=== PATIENT | male | born 1950 | race Caucasian/White ===

== ENCOUNTER 2016-09-30 20:59 | Observation (INO) ==
--- NOTE | 2016-09-30 21:46 | Emergency Department Note ---
Disposition Clinical Impression: COPD exacerbation Disposition: Admitted As Inpatient Condition: Good URI/Sore Throat HPI - General Chief Complaint: ED Upper Respiratory Infection Stated Complaint: cough and chest pressure Source: patient Mode of arrival: private vehicle Limitations: no limitations Nursing Notes Reviewed: Yes Vital Signs Reviewed: Yes - History of Present Illness HPI Narrative: Patient presents to the ED complaining of cough, chest tightness and shortness of breath. Symptoms including going on for 3 days. Cough has been dry. Chest tightness is worse with coughing. Denies any sore throat. No fever or chills. No nasal congestion, occasional sneezing.. No abdominal pain, nausea, vomiting or diarrhea. Denies any sick contacts or recent travel. Continues to smoke a pack per day. Has a history of both COPD and asthma. States he has been using his albuterol at home "every hour" without improvement. He also took Robitussin cough medicine without relief. - Related Data Home Medications Medication Instructions Recorded Confirmed Albuterol Sulfate [Albuterol 2 puff IH Q4HR PRN 06/28/16 10/01/16 Inhaler] Calcium Polycarbophil [Fibercon] 625 mg PO QID 06/28/16 10/01/16 Cinnamon Bark [Cinnamon] 500 mg PO DAILY 06/28/16 10/01/16 Gabapentin [Neurontin] 300 mg PO QAM 06/28/16 10/01/16 Gabapentin [Neurontin] 600 mg PO BID 06/28/16 10/01/16 Loratadine [Claritin] 10 mg PO DAILY 06/28/16 10/01/16 Meloxicam [Mobic] 15 mg PO DAILY 06/28/16 10/01/16 Mometasone Furoate [Asmanex] 220 mcg IH QPM 06/28/16 10/01/16 Montelukast [Singulair] 10 mg PO HS 06/28/16 10/01/16 Onabotulinumtoxina [Botox] 200 unit SQ Q90D 06/28/16 10/01/16 OxyCODONE/APAP 10/325 [Percocet 1 each PO Q6HR PRN 06/28/16 10/01/16 10/325 MG] Pyridoxine HCl [Vitamin B-6] 25 mg PO DAILY 06/28/16 10/01/16 Tizanidine HCl 4 mg PO TID 06/28/16 10/01/16 Allergies Allergy/AdvReac Type Severity Reaction Status Date / Time No Known Allergies Allergy Verified 06/28/16 08:14 Constitutional: Denies: fever, chills, weakness, weight change Eyes: Denies: eye pain, eye discharge, vision change ENT ED: Denies: ear pain, throat pain, dental pain, hearing loss, epistaxis, congestion, dysphagia Cardiovascular: Denies: chest pain, palpitations, dyspnea on exertion, edema, syncope Respiratory: Reports: cough, dyspnea, wheezes. Denies: sputum production Gastrointestinal: Denies: abdominal pain, nausea, vomiting, diarrhea, constipation, hematemesis, melena, hematochezia Genitourinary: Denies: urgency, dysuria, frequency, hematuria Musculoskeletal: Denies: back pain, neck pain, arthralgia, myalgia Integumentary: Denies: rash, abrasion, lesions Neurological: Denies: headache, weakness, numbness, paresthesias, confusion, abnormal gait, vertigo Psychiatric: Denies: anxiety, depression, suicidal thoughts, homicidal thoughts , auditory hallucinations, visual hallucinations Endocrine: Denies: fatigue Hematological/Lymphatic: Denies: easy bleeding, easy bruising Allergic/Immunologic: Denies: facial swelling, urticaria URI PMH - Past Medical History Medical history: Reports: asthma, cancer, COPD, hyperlipidemia, migraine, other Surgical history: Reports: cancer surgery Psychiatric history: Reports: no psych history - Social History Smoking Status: Current every day smoker Alcohol use: Reports: none Drug use: Reports: none Physical Exam - General Limitations: no limitations General appearance: alert, in no apparent distress - Head Head exam: atraumatic, normocephalic, normal inspection - Eye Eye exam: Present: normal appearance, PERRL, EOMI - ENT ENT exam: normal exam, normal oropharynx, mucous membranes moist, TM's normal bilaterally, normal external ear exam - Neck Neck exam: Present: normal inspection, full ROM, trachea midline, lymphadenopathy - Chest Chest inspection: Present: normal inspection, symmetric chest wall rise - Respiratory Respiratory exam: Present: wheezes. Absent: respiratory distress - Expanded Respiratory Exam Location: wheezes: Left, Right, Upper, Lower, decreased breath sounds: Left, Right, Upper, Lower - Cardiovascular Cardiovascular exam: Present: regular rate, normal rhythm, normal heart sounds - Abdominal Exam Abdominal exam: Present: soft, Non-Tender. Absent: tenderness, distention, guarding, rebound, rigidity - Extremities Exam Extremities exam: Present: normal inspection, full ROM. Absent: tenderness, pedal edema - Back Exam Back exam: Present: normal inspection, full ROM. Absent: tenderness - Neurological Exam Neurological exam: Present: alert, oriented X3 - Psychiatric Psychiatric exam: Present: normal affect, normal mood - Skin Skin exam: Present: warm, dry, intact, normal color Course Course Narrative: Patient presents to the ED with 3 days of worsening shortness of breath, cough and chest tightness with a history of COPD, concerning for COPD exacerbation versus possibility of pneumonia or simple URI. He was wheezing with decreased aeration on arrival. He was given Solu-Medrol and nebulizer treatments. Chest x-ray was negative for pneumonia. He had only minimal improvement while in the ED and did require oxygen for sats dropping into the upper 80s. He will require admission for his COPD exacerbation given his mild hypoxia and current oxygen requirement. Patient agreed to admission. I spoke to the hospitalist on -call, Dr. Lamb, who agreed to accept the patient. Vital Signs Temperature 98.2 F 09/30/16 21:03 Pulse Rate 81 09/30/16 21:03 Respiratory Rate 18 09/30/16 21:03 Blood Pressure 132/88 09/30/16 21:03 O2 Sat by Pulse Oximetry 94 L 09/30/16 21:03 Temperature 97.6 F 10/01/16 01:40 Pulse Rate 74 10/01/16 01:40 Respiratory Rate 18 10/01/16 01:40 Blood Pressure 164/85 10/01/16 01:40 O2 Sat by Pulse Oximetry 93 L 10/01/16 01:40 Oxygen Delivery Oxygen Delivery Room Air Upper Respiratory Infection - Differential Diagnosis Differential Diagnosis: Likely: upper respiratory infection, other viral infection, bronchitis, pneumonia - Medical Records Medical records reviewed: Yes I reviewed the patient's medical records. - Radiology Data Radiology results reviewed: Yes I reviewed the patient's radiology results. ITS Impressions Chest X-Ray 09/30/16 21:54 IMPRESSION: 1. No acute cardiopulmonary disease. 2. COPD. D/ / 09/30/2016 22:29:41 Daija Simmons MD / joseph Interpreting Provider: Daija Simmons MD
[2016-09-30] MEDS ORDERED: Ipratropium/Albuterol Neb 3 ML IH ONE (21:54)
[2016-09-30] MEDS: Ipratropium/Albuterol Neb 3 ML IH ONE ×2 (22:52)
[2016-10-01] MEDS ORDERED: Naloxone 0.4 MG/ML INJ IVP PRN ×2 (01:49→02:01)
[2016-10-01] MEDS ORDERED: Gabapentin 300 MG CAPSULE PO STA ×2 (01:54→02:01)
[2016-10-01] MEDS: *HR* OxyCODONE/APAP 10/325 TABLET PO PRN ×3 (02:10→15:42)
[2016-10-01] MEDS ORDERED: Ipratropium/Albuterol Neb 3 ML IH SCH (04:00)
[2016-10-01] MEDS: Ipratropium/Albuterol Neb 3 ML IH SCH ×3 (04:34→12:49)
[2016-10-01 06:43] LABS: Hematocrit 39.7 % (37.5-50.1); Hemoglobin 13.6 g/dL (12.9-16.9); Mean Corpuscular HGB Conc 34.3 g/dL (31.6-35.5); Mean Corpuscular Hemoglobin 31.1 pg (28.0-33.3); Mean Corpuscular Volume 90.8 fL (83.0-100.0); Mean Platelet Volume 9.4 fL (9.4-12.4); Platelet Count 239 K/mcL (140-400); Red Blood Count 4.37 M/mcL (4.19-5.50); Red Cell Distribution Width 12.2 % (11.5-14.5)
[2016-10-01 06:58] VITALS: BP 128/70
[2016-10-01 07:02] LABS: Alanine Aminotransferase 15 Units/L (0-55); Albumin 3.6 g/dL (3.5-5.0); Alkaline Phosphatase 75 Units/L (38-126); Aspartate Amino Transferase 17 Units/L (5-34); BUN/Creatinine Ratio 14 (6-26); Bilirubin,Total 0.3 mg/dL (0.2-1.2); Blood Urea Nitrogen 14 mg/dL (8-26); Calcium 9.1 mg/dL (8.6-10.8); Carbon Dioxide 24 mEq/L (19-29); Chloride 103 mEq/L (98-109); Globulin 3.5 g/dL (2.4-3.5); Glucose 165 mg/dL (70-99); Osmolality,Calculated 298 (280-300); Potassium 4.3 mEq/L (3.5-4.5); Sodium 142 mEq/L (136-145); Total Protein 7.1 g/dL (6.0-8.3); eGFR For African Americans > 60 (> 60); eGFR For Non-African Americans > 60 (> 60)
[2016-10-01 07:41] LABS: Lymphocytes # 1.5 K/mcL (0.6-4.6); Monocytes # 0.4 K/mcL (0.0-1.3); Neutrophils # 7.7 K/mcL (1.6-8.9); Toxic Granulation Present (Not Present)
[2016-10-01] MEDS ORDERED: Pyridoxine (B-6) 50 MG TABLET PO SCH (09:00)
[2016-10-01] MEDS ORDERED: Loratadine 10 MG TABLET PO SCH (09:00)
[2016-10-01] MEDS ORDERED: Gabapentin 300 MG CAPSULE PO SCH ×2 (09:00)
[2016-10-01] MEDS ORDERED: Beclomethasone 80mcg MDI IH SCH (10:00)
--- NOTE | 2016-10-01 12:58 | Internal Med History&Physical ---
Date of Encounter: 10/01/16 Time of Encounter: 12:20 Assessment and Plan (1) COPD exacerbation Current visit: Yes Status: Acute He was started on home medications by the emergency room physician. A dose of Solu-Medrol was also given. He states he feels nearly back to baseline and stable for discharge home. Room air oximetry will be checked prior to discharge on a 6 minute walk Internal Medicine - H&P: HPI Chief complaint: Cough and dyspnea Admitted From: Home Plans for Post Hospital Care: Home History of present illness: Mr. Juan is a 65 year old male who came to emergency room stating he had increased dyspnea since September 27. He had a dry cough. The dyspnea and coughing worsened the evening of September 30 so he came to emergency room. He was felt to have exacerbation of COPD and was admitted to [facility] for ongoing care needs. His respiratory history is significant for having smoked since age 18 up to one and one half packs per day. He has been diagnosed with COPD with pulmonary function test done 2014. He does not wear home oxygen. He states he does not get dyspneic on exertion with his routine activities. He reports he had a spontaneous pneumothorax approximately 1989. He states he feels significantly improved at the present time. Past Med Surg Social Fam HX - Past Medical History Medical history: asthma, cancer, COPD, hyperlipidemia, migraine, other Psychiatric history: no psych history - Past Surgical History Surgical History: cancer surgery - Social History Smoking Status: Current every day smoker Smokeless Tobacco Status: Yes Alcohol use: none Drug use: none - Family History Mother Living Status: Age at : 50 Hx Family Cardiac Disorders: Yes Father Living Status: Age at : 65 Cause of : CVA Hx Family Neurologic Disorders: Yes (CVA) Internal Medicine - H&P: Meds Albuterol Sulfate [Albuterol Inhaler] 2 puff IH Q4HR PRN 06/28/16 [History] Calcium Polycarbophil [Fibercon] 625 mg PO QID 06/28/16 [History] Cinnamon Bark [Cinnamon] 500 mg PO DAILY 06/28/16 [History] Gabapentin [Neurontin] 300 mg PO QAM 06/28/16 [History] Gabapentin [Neurontin] 600 mg PO BID 06/28/16 [History] Loratadine [Claritin] 10 mg PO DAILY 06/28/16 [History] Meloxicam [Mobic] 15 mg PO DAILY 06/28/16 [History] Mometasone Furoate [Asmanex] 220 mcg IH QPM 06/28/16 [History] Montelukast [Singulair] 10 mg PO HS 06/28/16 [History] Onabotulinumtoxina [Botox] 200 unit SQ Q90D 06/28/16 [History] OxyCODONE/APAP 10/325 [Percocet 10/325 MG] 1 each PO Q6HR PRN 06/28/16 [History] Pyridoxine HCl [Vitamin B-6] 25 mg PO DAILY 06/28/16 [History] Tizanidine HCl 4 mg PO TID 06/28/16 [History] Allergies No Known Allergies Allergy (Verified 06/28/16 08:14) All Systems PM: A 10-system review of systems was performed and is negative for pertinent findings except as documented above in the HPI. Review of systems: Gen.: He states his weight has been stable the past few months Cardiovascular: He denies hypertension PA heart failure angina DVT or pulmonary embolus Respiratory: As per history of present illness GI: Denies disorders of his liver gallbladder or exocrine pancreas : He was diagnosed with bladder cancer approximately 2011 and has had 5 surgeries of ablative therapy. He states he is cancer free at this time. He denies other kidney or bladder disorders Neurologic: Denies large distribution strokes or seizures Endocrine: Denies diabetes thyroid disease or hyperlipidemia Hematology/oncology: Denies blood disorders cancers or anemia Psychiatric: He denies anxiety depression or other mental health issues Musk skeletal: He has degenerative disc disease in his low back and has had 4 back surgeries. He has occasional pain in his neck. He has had bilateral hand surgeries with carpal tunnel syndrome and trigger finger. - Constitutional Vitals: Temp Pulse Resp BP Pulse Ox 98.3 F 71 18 128/70 94 L 10/01/16 06:57 10/01/16 06:57 10/01/16 06:57 10/01/16 06:57 10/01/16 06:57 Exam: Gen.: He is well developed well-nourished male who appears in no severe distress at present time. HEENT: Head is atraumatic and normocephalic. Eyes: EOMI. There is no scleral icterus. Mouth: Mucosa is moist. Neck: Supple and nontender. There is no thyromegaly or adenopathy noted. Heart: Regular without murmurs gallops or ectopics. Lungs: He has diminished breath sounds diffusely. No wheezes or crackles are heard. Back: Straight without flank tenderness or presacral edema Abdomen: Soft and nontender. No masses or guarding are noted. Extremities: There is no cyanosis edema or clubbing noted. Dorsalis pedis and posttibial pulses are trace to 1+ palpable bilaterally. Neurologic: Mental status: He is talkative and a good historian. Cranial nerves : Smile is symmetric. Forehead wrinkles bilaterally. Tongue protrudes midline. EOMI. Motor: There is no pronator drift. Cerebellar: Finger to nose is intact bilaterally. Skin: Warm and dry Internal Med - H&P Results - Labs CBC & Chem 7: 10/01/16 06:28 10/01/16 06:28 Labs: Short CBC 10/01/16 Range/Units 06:28 WBC 9.6 (4.3-11.1) K/mcL Hgb 13.6 (12.9-16.9) g/dL Hct 39.7 (37.5-50.1) % Plt Count 239 (140-400) K/mcL Neutrophils # 7.7 (1.6-8.9) K/mcL BMP 10/01/16 06:28 Sodium 142 Potassium 4.3 Chloride 103 Carbon Dioxide 24 BUN 14 Creatinine 0.99 Glucose 165 H Calcium 9.1 Liver Function 10/01/16 Range/Units 06:28 Total Bilirubin 0.3 (0.2-1.2) mg/dL AST 17 (5-34) Units/L ALT 15 (0-55) Units/L Alkaline Phosphatase 75 (38-126) Units/L Albumin 3.6 (3.5-5.0) g/dL - VTE Reasons for not Prescribing Prophylaxis: Treatment not Indicated - Low risk for VTE
--- NOTE | 2016-10-01 13:06 | Discharge Summary ---
Date of Encounter: 10/01/16 Time of Encounter: 12:20 - Discharge Diagnosis (1) COPD exacerbation Priority: Primary Status: Acute - Discharge Medications Home Medications: Albuterol Sulfate [Albuterol Inhaler] 2 puff IH Q4HR PRN 06/28/16 [History] Calcium Polycarbophil [Fibercon] 625 mg PO QID 06/28/16 [History] Cinnamon Bark [Cinnamon] 500 mg PO DAILY 06/28/16 [History] Gabapentin [Neurontin] 300 mg PO QAM 06/28/16 [History] Gabapentin [Neurontin] 600 mg PO BID 06/28/16 [History] Loratadine [Claritin] 10 mg PO DAILY 06/28/16 [History] Meloxicam [Mobic] 15 mg PO DAILY 06/28/16 [History] Mometasone Furoate [Asmanex] 220 mcg IH QPM 06/28/16 [History] Montelukast [Singulair] 10 mg PO HS 06/28/16 [History] Onabotulinumtoxina [Botox] 200 unit SQ Q90D 06/28/16 [History] OxyCODONE/APAP 10/325 [Percocet 10/325 MG] 1 each PO Q6HR PRN 06/28/16 [History] Pyridoxine HCl [Vitamin B-6] 25 mg PO DAILY 06/28/16 [History] Tizanidine HCl 4 mg PO TID 06/28/16 [History] Allergies/Adverse Reactions: Allergies No Known Allergies Allergy (Verified 06/28/16 08:14) Date of admission: 10/01/16 01:13 Primary care physician: Sarah Dempsey CNP - Patient Status Disposition: Home, Self-Care Condition: Good Overall status at discharge: patient is progressing back to baseline - Discharge Instructions Follow Up With: Sarah Dempsey CNP [Primary Care Provider] - 1 week Forms: ED Satisfaction Letter - Diet and Activity Activity: resume usual activities as tolerated Diet: advance to your usual diet Hospital course: Mr. Juan is a 65 year old male who came to emergency room stating he had increased dyspnea since September 27. He had a dry cough. The dyspnea and coughing worsened the evening of September 30 so he came to emergency room. He was felt to have exacerbation of COPD and was admitted to MedSurg floor for ongoing care needs. Initial orders were written by the emergency room physician. I saw him the afternoon of October 01 and performed a history physical and discharge. When I saw him he felt nearly back to his baseline and felt stable for discharge home which I felt was reasonable. His vital signs remained afebrile. He was not dyspneic at rest. Room air oximetry was checked on 6 minute walk prior to discharge. His oxygen saturation decreased to 85% after walking 10 feet. He became short of breath and required immediate reapplication of oxygen. He will need oxygen at home at 2 L/m by nasal cannula 07/03 with portable gas and concentrator. He was encouraged to discontinue smoking. I reviewed his medications with him and learned he was not using his inhaled corticosteroid on a regular basis but rather on a when necessary basis. I encouraged him to use it regularly. He will continue his home medicines otherwise as previously prescribed. He will follow with Sarah Dempsey CNP within 1 week. - Time Spent with Patient Total time spent providing and/or coordinating discharge services: - Constitutional Vitals: Temp Pulse Resp BP Pulse Ox 98.3 F 71 18 128/70 93 L 10/01/16 06:57 10/01/16 06:57 10/01/16 06:57 10/01/16 06:57 10/01/16 12:45 - VTE Reasons for not Prescribing Prophylaxis: Treatment not Indicated - Low risk for VTE
== END 2016-10-01 15:50 | disposition home or self-care (01) ==
LOC: INPPIK 20:59 → EMEROOPIK 20:59 → INPPIK 10-01 01:19
PROVIDERS: ADMIT Internal Medicine; ATTEND Internal Medicine

== ENCOUNTER 2017-12-07 08:03 | Observation (INO) ==
[2017-12-07] MEDS ORDERED: Ipratropium/Albuterol Neb 3 ML IH ONE (08:20)
--- NOTE | 2017-12-07 08:20 | Emergency Department Note ---
Disposition Clinical Impression: Community acquired pneumonia, COPD exacerbation Disposition: Admitted As Inpatient Condition: Fair Referrals: Sarah Dempsey, OLIVIER [Primary Care Provider] - Forms: ED Satisfaction Letter Time of Disposition: 09:32 (abdelrahman shultz [facility]) SOB HPI - General Chief Complaint: ED Shortness of Breath/Dyspnea Stated Complaint: SHORTNESS OF BREATH Time Seen by Provider: 12/07/17 08:05 Source: patient Mode of arrival: ambulatory Limitations: no limitations Nursing Notes Reviewed: Yes Vital Signs Reviewed: Yes - History of Present Illness Pt Subjective Complaint: shortness of breath, cough, chest pain Onset (ago): day(s) (3-4) Context: recent illness Severity: moderate, severe Consistency/Duration: gradually worsening Improves with: oxygen Worsens with: exertion, movement, coughing Known history of: COPD Associated symptoms: Reports: chest pain, cough, wheezing, sputum production. Denies: pain with inspiration, fever, orthopnea, lower extremity pain, polyuria , polydipsia, parasthesias, palpitations, hemoptysis, diaphoresis, nausea/ vomiting, syncope, abdominal pain, rash, sense of impending doom Treatment prior to arrival: oxygen, bronchodilator - Related Data Home Medications Medication Instructions Recorded Confirmed Albuterol Sulfate [Albuterol 2 puff IH Q4HR PRN 06/28/16 12/07/17 Inhaler] Calcium Polycarbophil [Fibercon] 625 mg PO QID 06/28/16 12/07/17 Cinnamon Bark [Cinnamon] 500 mg PO DAILY 06/28/16 12/07/17 Gabapentin [Neurontin] 300 mg PO QAM 06/28/16 12/07/17 Gabapentin [Neurontin] 600 mg PO BID 06/28/16 12/07/17 Loratadine [Claritin] 10 mg PO DAILY 06/28/16 12/07/17 Meloxicam [Mobic] 15 mg PO DAILY 06/28/16 12/07/17 Mometasone Furoate [Asmanex] 220 mcg IH QPM 06/28/16 12/07/17 Montelukast [Singulair] 10 mg PO HS 06/28/16 12/07/17 Onabotulinumtoxina [Botox] 200 unit SQ Q90D 06/28/16 12/07/17 OxyCODONE/APAP 10/325 [Percocet 1 each PO Q6HR PRN 06/28/16 12/07/17 10/325 MG] Pyridoxine HCl [Vitamin B-6] 25 mg PO DAILY 06/28/16 12/07/17 Baclofen 20 mg PO DAILY 12/07/17 12/07/17 Baclofen 40 mg PO BID 12/07/17 12/07/17 Allergies Allergy/AdvReac Type Severity Reaction Status Date / Time No Known Allergies Allergy Verified 06/28/16 08:14 All systems ED: reviewed and negative except as stated. Review of Systems: As Per HPI Constitutional: Reports: fever, weakness. Denies: chills Eyes: Denies: eye pain, eye discharge ENT ED: Denies: ear pain, throat pain, dental pain Cardiovascular: Reports: chest pain. Denies: palpitations, dyspnea on exertion Respiratory: Reports: cough, dyspnea, wheezes, sputum production Gastrointestinal: Denies: abdominal pain, nausea, vomiting Genitourinary: Denies: urgency, dysuria, frequency Musculoskeletal: Denies: back pain, neck pain Integumentary: Denies: rash, abrasion Neurological: Denies: headache, weakness, numbness Psychiatric: Denies: anxiety, depression Endocrine: Denies: fatigue Hematological/Lymphatic: Denies: easy bleeding Allergic/Immunologic: Denies: facial swelling Past Medical History - Past Medical History Attestation: Yes The following information was validated with the patient. Source: patient, old records reviewed, nursing notes reviewed Medical history: Reports: arthritis, asthma, cancer, COPD, fibromyalgia, hyperlipidemia, migraine, other Surgical history: Reports: cancer surgery Psychiatric history: Reports: no psych history - Social History Smoking Status: Current every day smoker Smokeless Tobacco Status: No Alcohol use: Reports: none Drug use: Reports: none Physical Exam - General Limitations: no limitations General appearance: alert, in no apparent distress, anxious - Head Head exam: atraumatic, normocephalic, normal inspection - Eye Eye exam: Present: normal appearance, PERRL, EOMI - ENT ENT exam: normal exam, normal oropharynx, mucous membranes moist, TM's normal bilaterally, normal external ear exam, other (pnd) - Neck Neck exam: Present: normal inspection, full ROM, trachea midline - Chest Chest inspection: Present: normal inspection, symmetric chest wall rise. Absent : tenderness - Respiratory Respiratory exam: Present: wheezes, prolonged expiratory phase, other (Wet moist cough). Absent: respiratory distress, accessory muscle use - Cardiovascular Cardiovascular exam: Present: regular rate, normal rhythm, normal heart sounds - Abdominal Exam Abdominal exam: Present: soft, Non-Tender, normal bowel sounds. Absent: mass, pulsatile mass - Extremities Exam Extremities exam: Present: normal inspection, full ROM, normal capillary refill. Absent: tenderness, pedal edema, joint swelling, calf tenderness - Expanded Lower Extremity Exam Neurovascular/Tendon exam: Present: normal capillary refill, normal fine/light touch Gait: observed and normal - Back Exam Back exam: Present: normal inspection, full ROM. Absent: muscle spasm - Neurological Exam Neurological exam: Present: alert, oriented X3, CN II-XII intact, normal gait - Psychiatric Psychiatric exam: Present: normal affect, normal mood - Skin Skin exam: Present: warm, dry, intact, normal color Course Course Narrative: Patient was seen and examined patient was given aerosol treatment 2 patient still has wet moist cough but is not as deep as the patient though is resting a little bit easier able sit back hip this time and respiratory rate appears to have slowed a slightly down to 24 patient does meet criteria for sepsis but not septic shock as read admitted services of Dr. Lamb he'll be given fluids antibiotics he started on Levaquin here in the ER. Pancultured Vital Signs Temperature 99.0 F 12/07/17 08:05 Pulse Rate 94 12/07/17 08:05 Respiratory Rate 24 12/07/17 08:05 Blood Pressure 151/91 12/07/17 08:05 O2 Sat by Pulse Oximetry 94 12/07/17 08:05 Temperature 99.0 F 12/07/17 08:05 Pulse Rate 85 12/07/17 09:00 Respiratory Rate 20 12/07/17 09:00 Blood Pressure 119/74 12/07/17 09:00 O2 Sat by Pulse Oximetry 94 12/07/17 09:00 Oxygen Delivery Oxygen Delivery Nasal Cannula Shortness of Breath/Dyspnea - Differential Diagnosis Likely: acute exacerbation of chronic obstructive airways disease, pneumonia - Medical Records Medical records reviewed: Yes I reviewed the patient's medical records. - Lab Data Lab results reviewed: Yes I reviewed the patient's lab results. Result diagrams: 12/07/17 08:20 12/07/17 08:20 Lab Results 12/07/17 12/07/1712/07/18 Range/Units 08:20 08:20 08:20 WBC 17.4 H (4.3-11.1) K/mcL RBC 4.18 L (4.19-5.50) M/mcL Hgb 13.2 (12.9-16.9) g/dL Hct 39.8 (37.5-50.1) % MCV 95.2 (83.0-100.0) fL MCH 31.6 (28.0-33.3) pg MCHC 33.2 (31.6-35.5) g/dL RDW 13.0 (11.5-14.5) % Plt Count 198 (140-400) K/mcL MPV 9.9 (9.4-12.4) fL Immature Gran % 0.3 (0-4) % Seg Neutrophils % 77.8 % Lymphocytes % 14.3 % Monocytes % 6.7 % Eosinophils % 0.7 % Basophils % 0.2 % Neutrophils # 13.5 H (1.6-8.9) K/mcL Lymphocytes # 2.5 (0.6-4.6) K/mcL Monocytes # 1.2 (0.0-1.3) K/mcL Eosinophils # 0.1 (0.0-0.6) K/mcL Basophils # 0.0 (0.0-0.2) K/mcL PT 11.1 (9.4-12.1) Seconds INR 1.0 APTT 30.3 (26.0-36.0) Seconds Sodium 138 (136-145) mEq/L Potassium 3.9 (3.5-5.1) mEq/L Chloride 101 (98-107) mEq/L Carbon Dioxide 32 H (23-29) mEq/L BUN 14 (8-23) mg/dL Creatinine 0.78 (0.70-1.30) mg/dL Est GFR ( Amer) > 60 (> 60) Est GFR (Non-Af Amer) > 60 (> 60) BUN/Creatinine Ratio 18 (6-26) Glucose 117 H (70-105) mg/dL Calculated Osmolality 288 (280-300) Calcium 9.3 (8.6-10.3) mg/dL Total Bilirubin 0.5 (0.3-1.0) mg/dL AST 13 (13-39) Units/L ALT 13 (7-52) Units/L Alkaline Phosphatase 67 (34-104) Units/L Troponin I < 0.03 (< 0.04) ng/mL Serum Total Protein 7.2 (6.4-8.9) g/dL Albumin 4.1 (3.5-5.7) g/dL Globulin 3.1 (2.4-3.5) g/dL Albumin/Globulin Ratio 1.3 (1.1-2.2) - Radiology Data Radiology results reviewed: Yes I reviewed the patient's radiology results. ITS Impressions Chest X-Ray 12/07/17 08:22 IMPRESSION: New mild multifocal airspace opacity within the right upper lobe and right lung base, representing either atelectasis or multifocal pneumonia. D/ / 12/07/2017 09:17:31 Mohsen Carrillo MD / [facility] Interpreting Provider: Mohsen Carrillo MD - EKG Data EKG attestation: Yes I reviewed and interpreted this EKG. EKG results narrative: Sinus rhythm with an arrhythmia rate of 85 OK 170 QRS 100 QT 352 axis LXIII Critical Care Time Critical Care Time: No Sepsis Reassessment Note - Evaluation Sepsis Screen: Sepsis Risk Current Stage of Sepsis: sepsis Possible Source of Sepsis: pulmonary - Focused Exam Date of Encounter: 12/07/17 Time of Encounter: 09:28 Vital Signs: Vital Signs Temp Pulse Resp BP Pulse Ox 12/07/17 09:00 85 20 119/74 94 12/07/17 08:32 18 90 12/07/17 08:05 99.0 F 94 24 151/91 94 Respiratory Exam: Present: wheezes, rhonchi, decreased breath sounds, prolonged expiratory phas Cardiovascular Exam: Present: RRR Capillary Refill: < 2 seconds Peripheral Pulse Strength: 4+ bounding Peripheral Pulse Location: Radial Skin Exam: normal turgor
[2017-12-07] MEDS ORDERED: methylPREDNISolone 125 MG/2 ML VIAL IVP ONE (08:22)
[2017-12-07] MEDS ORDERED: Ipratropium/Albuterol Neb 3 ML ONE (08:24)
[2017-12-07 08:29] LABS: Basophils % 0.2 %; Eosinophils # 0.1 K/mcL (0.0-0.6); Eosinophils % 0.7 %; Hematocrit 39.8 % (37.5-50.1); Hemoglobin 13.2 g/dL (12.9-16.9); Immature Granulocytes % 0.3 % (0-4); Lymphocytes # 2.5 K/mcL (0.6-4.6); Lymphocytes % 14.3 %; Mean Corpuscular HGB Conc 33.2 g/dL (31.6-35.5); Mean Corpuscular Hemoglobin 31.6 pg (28.0-33.3); Mean Corpuscular Volume 95.2 fL (83.0-100.0); Mean Platelet Volume 9.9 fL (9.4-12.4); Monocytes # 1.2 K/mcL (0.0-1.3); Monocytes % 6.7 %; Neutrophils # 13.5 K/mcL (1.6-8.9); Platelet Count 198 K/mcL (140-400); Red Blood Count 4.18 M/mcL (4.19-5.50); Segmented Neutrophils % 77.8 %
[2017-12-07 08:37] LABS: Prothrombin Time 11.1 Seconds (9.4-12.1)
[2017-12-07 08:40] LABS: Activated Partial Thrombo Time 30.3 Seconds (26.0-36.0)
[2017-12-07 08:48] LABS: Troponin I < 0.03 ng/mL (< 0.04)
[2017-12-07 08:55] LABS: Alanine Aminotransferase 13 Units/L (7-52); Albumin 4.1 g/dL (3.5-5.7); Albumin/Globulin Ratio 1.3 (1.1-2.2); Alkaline Phosphatase 67 Units/L (34-104); Aspartate Amino Transferase 13 Units/L (13-39); BUN/Creatinine Ratio 18 (6-26); Bilirubin,Total 0.5 mg/dL (0.3-1.0); Blood Urea Nitrogen 14 mg/dL (8-23); Calcium 9.3 mg/dL (8.6-10.3); Carbon Dioxide 32 mEq/L (23-29); Chloride 101 mEq/L (98-107); Globulin 3.1 g/dL (2.4-3.5); Glucose 117 mg/dL (70-105); Osmolality,Calculated 288 (280-300); Potassium 3.9 mEq/L (3.5-5.1); Sodium 138 mEq/L (136-145); Total Protein 7.2 g/dL (6.4-8.9); eGFR For African Americans > 60 (> 60); eGFR For Non-African Americans > 60 (> 60)
[2017-12-07] MEDS ORDERED: Levofloxacin 750 MG/150 ML 750 MG/150 ML BAG IVPB ONE (09:11)
[2017-12-07] MEDS ORDERED: Naloxone 0.4 MG/ML INJ IVP PRN (10:06)
[2017-12-07] MEDS: *HR* OxyCODONE/APAP 10/325 TABLET PO PRN ×3 (11:22→23:34)
[2017-12-07] MEDS: 0.9 % Sodium Chloride 1,000 ML IVC SCH ×2 (11:22→18:31)
--- NOTE | 2017-12-07 18:06 | Internal Med History&Physical ---
Date of Encounter: 12/07/17 Time of Encounter: 17:35 Assessment and Plan (1) Community acquired pneumonia Current visit: Yes Status: Acute He was started on Levaquin through emergency room. Will continue this and add lactobacillus. Will order chest CT to further evaluate. Qualifiers: Laterality: right Lung location: unspecified part of lung Qualified Code( s): J18.9 - Pneumonia, unspecified organism (2) COPD exacerbation Current visit: Yes Status: Acute Will treat pneumonia as per above. Continue Singulair and prn albuterol nebs Internal Medicine - H&P: HPI Chief complaint: Dyspnea Admitted From: Emergency Dept Plans for Post Hospital Care: Home History of present illness: Mr. Juan is a 67 year old male who came to emergency room complaining of increased dyspnea over the past 3 days. He reports cough occasionally productive of greenish sputum. He denies hemoptysis, fevers, or chills. He was evaluated in emergency room and found to have multifocal right lung pneumonia on chest x-ray. He was admitted to [facility] floor for ongoing care needs. Respiratory history is significant for having smoked since age 18 up to one half packs per day. He reports PFTs done 2015 showed COPD. He qualified for home oxygen at time of discharge September 2016 [facility] hospitalization and states he wears it 07/03 except taking it off to smoke. He reports spontaneous pneumothorax requiring surgical intervention approximately 1989. Past Med Surg Social Fam HX - Past Medical History Medical history: arthritis, asthma, cancer, COPD, fibromyalgia, hyperlipidemia, migraine, other Psychiatric history: no psych history - Past Surgical History Surgical History: cancer surgery - Social History Smoking Status: Current every day smoker Smokeless Tobacco Status: No Alcohol use: none Drug use: none - Family History Mother Living Status: Hx Family Cardiac Disorders: Yes Father Living Status: Hx Family Neurologic Disorders: Yes (CVA) Internal Medicine - H&P: Meds Albuterol Sulfate [Albuterol Inhaler] 2 puff IH Q4HR PRN 06/28/16 [History] Calcium Polycarbophil [Fibercon] 625 mg PO QID 06/28/16 [History] Cinnamon Bark [Cinnamon] 500 mg PO DAILY 06/28/16 [History] Gabapentin [Neurontin] 300 mg PO QAM 06/28/16 [History] Gabapentin [Neurontin] 600 mg PO BID 06/28/16 [History] Loratadine [Claritin] 10 mg PO DAILY 06/28/16 [History] Meloxicam [Mobic] 15 mg PO DAILY 06/28/16 [History] Mometasone Furoate [Asmanex] 220 mcg IH QPM 06/28/16 [History] Montelukast [Singulair] 10 mg PO HS 06/28/16 [History] Onabotulinumtoxina [Botox] 200 unit SQ Q90D 06/28/16 [History] OxyCODONE/APAP 10/325 [Percocet 10/325 MG] 1 each PO Q6HR PRN 06/28/16 [History] Pyridoxine HCl [Vitamin B-6] 25 mg PO DAILY 06/28/16 [History] Baclofen 20 mg PO DAILY 12/07/17 [History] Baclofen 40 mg PO BID 12/07/17 [History] 3 Allergy/AdvReac Type Severity Reaction Status Date / Time No Known Allergies Allergy Verified 06/28/16 08:14 All Systems PM: A 10-system review of systems was performed and is negative for pertinent findings except as documented above in the HPI. Review of systems: Review of systems from his September 2016 [facility] hospitalization were reviewed and revised as below. Gen.: His weight has increased from 85.729 kg on 09/30/2016 to present weight of 88.451 kg. Cardiovascular: He denies hypertension [place] heart failure angina DVT or pulmonary embolus Respiratory: As per history of present illness GI: Denies disorders of his liver gallbladder or exocrine pancreas : He was diagnosed with bladder cancer approximately 2011 and has had 5 surgeries of ablative therapy. He states he is cancer free at this time. He denies other kidney or bladder disorders Neurologic: Denies large distribution strokes or seizures. He has history of migraine headaches and takes Botox injections Endocrine: Denies diabetes thyroid disease or hyperlipidemia Hematology/oncology: Denies blood disorders cancers or anemia Psychiatric: He denies anxiety depression or other mental health issues Musk skeletal: He has degenerative disc disease in his low back and has had 4 back surgeries. He has occasional pain in his neck. He has had bilateral hand surgeries with carpal tunnel syndrome and trigger finger. - Constitutional Vitals: Temp Pulse Resp BP Pulse Ox 98.2 F 74 18 134/70 90 12/07/17 14:06 12/07/17 14:06 12/07/17 14:06 12/07/17 14:06 12/07/17 14:06 Exam: Gen.: He is a well-developed well-nourished male resting quietly in bed who appears in no significant distress at present time HEENT: Head is atraumatic and normocephalic. Eyes: EOMI. There is no scleral icterus. Mouth: Mucosa is moist. Neck: Supple and nontender. There is no thyromegaly or adenopathy noted. Heart: Regular without murmurs gallops or ectopics Lungs: No wheezes or egophony or crackles are heard. He has diminished breath sounds diffusely. Abdomen: Soft and nontender. No masses or guarding are noted. Extremities: There is no cyanosis edema or clubbing noted. Dorsalis pedis and posttibial pulses 1-2 over 2 bilaterally. Neurologic: Mental status: He is talkative and a good historian. Cranial nerves : Smile is symmetric. Forehead wrinkles bilaterally. Tongue protrudes midline. EOMI. Motor: There is no pronator drift. Cerebellar: Finger to nose is intact bilaterally. Skin: Warm and dry. He has multiple subcutaneous lipomas Internal Med - H&P Results - Labs CBC & Chem 7: 12/07/17 08:20 12/07/17 08:20
[2017-12-07] MEDS: Gabapentin 300 MG CAPSULE PO SCH (20:16)
[2017-12-07] MEDS: Baclofen 10 MG TABLET PO SCH (20:16)
[2017-12-08 06:27] VITALS: BP 142/65
[2017-12-08 06:52] LABS: Basophils % 0.1 %; Eosinophils % 0.1 %; Hematocrit 37.5 % (37.5-50.1); Hemoglobin 12.2 g/dL (12.9-16.9); Immature Granulocytes % 0.5 % (0-4); Lymphocytes % 13.6 %; Mean Corpuscular HGB Conc 32.5 g/dL (31.6-35.5); Mean Corpuscular Hemoglobin 30.9 pg (28.0-33.3); Mean Corpuscular Volume 94.9 fL (83.0-100.0); Mean Platelet Volume 9.8 fL (9.4-12.4); Monocytes # 0.9 K/mcL (0.0-1.3); Monocytes % 5.9 %; Platelet Count 212 K/mcL (140-400); Red Blood Count 3.95 M/mcL (4.19-5.50); Red Cell Distribution Width 12.8 % (11.5-14.5); Segmented Neutrophils % 79.8 %
[2017-12-08 07:10] LABS: BUN/Creatinine Ratio 19 (6-26); Blood Urea Nitrogen 13 mg/dL (8-23); Calcium 9.2 mg/dL (8.6-10.3); Carbon Dioxide 30 mEq/L (23-29); Chloride 106 mEq/L (98-107); Glucose 106 mg/dL (70-105); Osmolality,Calculated 293 (280-300); Potassium 4.2 mEq/L (3.5-5.1); Sodium 141 mEq/L (136-145); eGFR For African Americans > 60 (> 60); eGFR For Non-African Americans > 60 (> 60)
[2017-12-08] MEDS: Gabapentin 300 MG CAPSULE PO SCH (08:13)
[2017-12-08] MEDS: Baclofen 10 MG TABLET PO SCH (08:18)
[2017-12-08] MEDS: *HR* OxyCODONE/APAP 10/325 TABLET PO PRN (08:19)
[2017-12-08] MEDS ORDERED: Baclofen 10 MG TABLET PO SCH ×2 (09:00→15:00)
[2017-12-08] MEDS ORDERED: Pyridoxine (B-6) 50 MG TABLET PO SCH (09:00)
[2017-12-08] MEDS ORDERED: Gabapentin 300 MG CAPSULE PO SCH ×2 (09:00→15:00)
[2017-12-08] MEDS ORDERED: Loratadine 10 MG TABLET PO SCH (09:00)
[2017-12-08] MEDS ORDERED: Levofloxacin 750 MG/150 ML 750 MG/150 ML BAG IVPB SCH (09:00)
[2017-12-08] MEDS ORDERED: (Cinnamon Bark [Cinnamon] 500 MG) PO SCH (09:00)
--- NOTE | 2017-12-08 09:44 | Discharge Summary ---
Date of Encounter: 12/08/17 Time of Encounter: 09:35 - Discharge Diagnosis (1) Community acquired pneumonia Priority: Primary Status: Acute Qualifiers: Laterality: right Lung location: unspecified part of lung Qualified Code( s): J18.9 - Pneumonia, unspecified organism (2) COPD exacerbation Priority: Secondary Status: Acute Hospital course: Mr. Juan is a 67 year old male who came to emergency room complaining of increased dyspnea over the past 3 days. He reports cough occasionally productive of greenish sputum. He denies hemoptysis, fevers, or chills. He was evaluated in emergency room and found to have multifocal right lung pneumonia on chest x-ray. He was admitted to [facility] for ongoing care needs. Initial orders written by the emergency room physician. I saw him on December 07 and performed a history and physical. He was started on Levaquin in emergency room. I added lactobacillus. Chest CT was done to further evaluate. The CT showed nonspecific multifocal bilateral pulmonary nodules. There were extensive emphysema changes. No dense consolidation was noted. Recommendation for repeat noncontrast chest CT in 3-4 months was made. Follow-up labs on December 08 showed WBC improved to 15.0. He remained afebrile during his hospital stay. On December 08 he wished to be discharged home which I felt was reasonable. He will continue oxygen use at home 07/03. He will continue with antibiotic and probiotic for 5 additional days at discharge. I encouraged him to become a nonsmoker. He will follow with his PCP within 1 week. - Time Spent with Patient Total time spent providing and/or coordinating discharge services: - Discharge Medications Prescriptions: Lactobacillus [Culturelle] 1 each PO BID #10 cap.sprink levoFLOXacin [Levaquin] 500 mg PO DAILY #5 tablet Home Medications: Albuterol Sulfate [Albuterol Inhaler] 2 puff IH Q4HR PRN 06/28/16 [History] Calcium Polycarbophil [Fibercon] 625 mg PO QID 06/28/16 [History] Cinnamon Bark [Cinnamon] 500 mg PO DAILY 06/28/16 [History] Gabapentin [Neurontin] 300 mg PO QAM 06/28/16 [History] Gabapentin [Neurontin] 600 mg PO BID 06/28/16 [History] Loratadine [Claritin] 10 mg PO DAILY 11/14/16 [History] Meloxicam [Mobic] 15 mg PO DAILY 06/28/16 [History] Mometasone Furoate [Asmanex] 220 mcg IH QPM 06/28/16 [History] Montelukast [Singulair] 10 mg PO HS 06/28/16 [History] Onabotulinumtoxina [Botox] 200 unit SQ Q90D 06/28/16 [History] OxyCODONE/APAP 10/325 [Percocet 10/325 MG] 1 each PO Q6HR PRN 06/28/16 [History] Pyridoxine HCl [Vitamin B-6] 25 mg PO DAILY 06/28/16 [History] Baclofen 20 mg PO DAILY 12/07/17 [History] Baclofen 40 mg PO BID 12/07/17 [History] Lactobacillus [Culturelle] 1 each PO BID #10 cap.sprink 12/08/17 [Rx] levoFLOXacin [Levaquin] 500 mg PO DAILY #5 tablet 12/08/17 [Rx] Allergies/Adverse Reactions: 3 Allergy/AdvReac Type Severity Reaction Status Date / Time No Known Allergies Allergy Verified 06/28/16 08:14 Date of admission: 12/07/17 09:55 Primary care physician: Sarah Dempsey CNP - Constitutional Vitals: Temp Pulse Resp BP Pulse Ox 98.2 F 60 16 142/65 94 12/08/17 06:23 12/08/17 06:23 12/08/17 06:23 12/08/17 06:23 12/08/17 06:23 - Patient Status Disposition: Home, Self-Care Condition: Fair Overall status at discharge: patient is progressing back to baseline - Discharge Instructions Follow Up With: Sarah Dempsey CNP [Primary Care Provider] - 1 week - Diet and Activity Activity: resume usual activities as tolerated, wear oxygen at all times Diet: advance to your usual diet
--- NOTE | 2017-12-09 19:18 | Electrocardiograph Report ---
[address] [address] Test Date: 2017-12-07 Pat Name: Ravinder Juan Department: [id number] Room: [facility] Gender: M Email Deployment Specialist: [id number] : 1950 Requested By: Phyllis Mckeon Order Number: [id number] Reading MD: Fernanda Brock Measurements Intervals [place] Rate: 85 P: 78 MT: 170 QRS: 63 QRSD: 100 T: 73 QT: 352 QTc: 394 Interpretive Statements SINUS RHYTHM WITH SINUS ARRHYTHMIA Electronically Signed On 12-09-2017 19:16:35 EDT by Fernanda Brock
== END 2017-12-08 10:03 | disposition home or self-care (01) ==
LOC: INPPIK 08:03 → EMEROOPIK 08:03 → INPPIK 10:37
PROVIDERS: ADMIT Internal Medicine; ATTEND Internal Medicine

== ENCOUNTER 2019-06-16 09:43 | Observation (INO) ==
[2019-06-16] MEDS ORDERED: Azithromycin 500 MG in 0.9 % Sodium Chloride 250 ML IVPB ONE (09:48)
[2019-06-16] MEDS ORDERED: cefTRIAXone 2,000 MG in Water for inj. (sterile) 10 ML IVP ONE (09:48)
[2019-06-16] MEDS ORDERED: Ipratropium/Albuterol Neb 3 ML IH ONE (09:48)
[2019-06-16] MEDS ORDERED: methylPREDNISolone 125 MG/2 ML VIAL IVP ONE (09:48)
[2019-06-16] MEDS ORDERED: 0.9 % Sodium Chloride 1,000 ML IVC SCH ×3 (10:00→17:23)
[2019-06-16 10:16] LABS: Basophils % 0.5 %; Eosinophils # 0.1 K/mcL (0.0-0.6); Eosinophils % 0.7 %; Hematocrit 36.3 % (37.5-50.1); Hemoglobin 11.7 g/dL (12.9-16.9); Immature Granulocytes % 0.3 % (0-4); Lymphocytes # 1.8 K/mcL (0.6-4.6); Lymphocytes % 23.6 %; Mean Corpuscular HGB Conc 32.2 g/dL (31.6-35.5); Mean Corpuscular Hemoglobin 30.5 pg (28.0-33.3); Mean Corpuscular Volume 94.8 fL (83.0-100.0); Mean Platelet Volume 9.5 fL (9.4-12.4); Monocytes # 1.3 K/mcL (0.0-1.3); Monocytes % 16.5 %; Neutrophils # 4.5 K/mcL (1.6-8.9); Platelet Count 245 K/mcL (140-400); Red Blood Count 3.83 M/mcL (4.19-5.50); Red Cell Distribution Width 13.4 % (11.5-14.5); Segmented Neutrophils % 58.4 %; White Blood Count 7.7 K/mcL (4.3-11.1)
[2019-06-16 10:24] LABS: INR 1.2; Prothrombin Time 13.6 Seconds (9.4-12.1)
[2019-06-16 10:32] LABS: Alanine Aminotransferase 18 Units/L (7-52); Albumin 3.7 g/dL (3.5-5.7); Albumin/Globulin Ratio 1.1 (1.1-2.2); Alkaline Phosphatase 59 Units/L (34-104); Aspartate Amino Transferase 26 Units/L (13-39); BUN/Creatinine Ratio 24 (6-26); Bilirubin,Direct 0.1 mg/dL (0.0-0.2); Bilirubin,Indirect 0.2 mg/dL (0.0-1.0); Bilirubin,Total 0.3 mg/dL (0.3-1.0); Blood Urea Nitrogen 21 mg/dL (8-23); Calcium 9.6 mg/dL (8.6-10.3); Carbon Dioxide 33 mEq/L (23-29); Chloride 98 mEq/L (98-107); Globulin 3.5 g/dL (2.4-3.5); Glucose 115 mg/dL (70-105); Osmolality,Calculated 286 (280-300); Potassium 4.5 mEq/L (3.5-5.1); Sodium 136 mEq/L (136-145); Total Protein 7.2 g/dL (6.4-8.9); eGFR For African Americans > 60 (> 60); eGFR For Non-African Americans > 60 (> 60)
[2019-06-16 10:37] LABS: Troponin I < 0.03 ng/mL (< 0.04)
[2019-06-16] MEDS ORDERED: Ondansetron ODT 4 MG TAB.RAPDIS SL PRN (12:13)
[2019-06-16] MEDS ORDERED: Naloxone 0.4 MG/ML INJ IVP PRN (12:13)
[2019-06-16] MEDS ORDERED: Mag Hydrox/Al Hydrox/Simeth 30 ML UDC PO PRN (12:13)
[2019-06-16] MEDS ORDERED: MOM Conc 10 ML UD.LIQ PO PRN (12:13)
[2019-06-16] MEDS ORDERED: Albuterol 2.5 MG/3 ML NEBULIZER IH ONE (12:20)
[2019-06-16] MEDS ORDERED: Albuterol 2.5 MG/3 ML NEBULIZER ONE (12:28)
[2019-06-16] MEDS ORDERED: *HR* OxyCODONE/APAP 10/325 TABLET PO ONE (12:31)
[2019-06-16] MEDS ORDERED: Ipratropium/Albuterol Neb 3 ML IH SCH (16:00)
[2019-06-16] MEDS ORDERED: Albuterol 2.5 MG/3 ML NEBULIZER IH PRN (17:21)
[2019-06-16] MEDS ORDERED: SUMAtriptan succinate 25 MG TABLET PO PRN (18:34)
[2019-06-16] MEDS ORDERED: *HR* OxyCODONE/APAP 10/325 TABLET PO PRN (18:34)
[2019-06-16] MEDS ORDERED: Gabapentin 400 MG CAPSULE PO SCH (18:35)
[2019-06-16 18:54] VITALS: BP 120/64
[2019-06-16] MEDS ORDERED: Baclofen 10 MG TABLET PO SCH (19:00)
[2019-06-16] MEDS ORDERED: Lactobacillus 1 EACH CAP.SPRINK PO SCH (21:00)
[2019-06-17] MEDS ORDERED: predniSONE 20 MG TABLET PO SCH (08:00)
[2019-06-17] MEDS ORDERED: cefTRIAXone 2,000 MG in 0.9 % Sodium Chloride Mini Bag 100 ML IVPB SCH (09:00)
[2019-06-17] MEDS ORDERED: Azithromycin 500 MG in 0.9 % Sodium Chloride 250 ML IVPB SCH (11:00)
[2019-06-17] MEDS ORDERED: tiZANidine 4 MG TABLET PO SCH (18:36)
== END 2019-06-16 18:58 | disposition other institution (70) ==
LOC: INPPIK 09:43 → EMEROOPIK 09:43 → INPPIK 13:13
PROVIDERS: ADMIT Internal Medicine; ATTEND Internal Medicine

== ENCOUNTER 2020-01-08 17:12 | Inpatient (IN) ==
[2020-01-08] MEDS ORDERED: methylPREDNISolone 125 MG/2 ML VIAL IVP ONE (17:21)
[2020-01-08] MEDS ORDERED: Ipratropium/Albuterol Neb 3 ML IH ONE (17:21)
[2020-01-08 17:39] LABS: Basophils % 0.1 %; Eosinophils # 0.3 K/mcL (0.0-0.6); Eosinophils % 3.5 %; Hematocrit 34.8 % (37.5-50.1); Hemoglobin 10.9 g/dL (12.9-16.9); Immature Granulocytes % 0.5 % (0-4); Lymphocytes # 2.1 K/mcL (0.6-4.6); Lymphocytes % 21.4 %; Mean Corpuscular HGB Conc 31.3 g/dL (31.6-35.5); Mean Corpuscular Hemoglobin 30.6 pg (28.0-33.3); Mean Corpuscular Volume 97.8 fL (83.0-100.0); Mean Platelet Volume 9.9 fL (9.4-12.4); Monocytes # 0.9 K/mcL (0.0-1.3); Monocytes % 9.2 %; Neutrophils # 6.3 K/mcL (1.6-8.9); Platelet Count 155 K/mcL (140-400); Red Blood Count 3.56 M/mcL (4.19-5.50); Red Cell Distribution Width 16.3 % (11.5-14.5); Segmented Neutrophils % 65.3 %; White Blood Count 9.6 K/mcL (4.3-11.1)
[2020-01-08] MEDS ORDERED: tiZANidine 4 MG TABLET PO ONE (17:57)
[2020-01-08] MEDS ORDERED: Gabapentin 400 MG CAPSULE PO ONE (17:57)
[2020-01-08] MEDS ORDERED: *HR* OxyCODONE/APAP 10/325 TABLET PO ONE (17:57)
[2020-01-08 18:00] LABS: BUN/Creatinine Ratio 22 (6-26); Blood Urea Nitrogen 17 mg/dL (8-23); Calcium 9.4 mg/dL (8.6-10.3); Carbon Dioxide 41 mEq/L (23-29); Chloride 101 mEq/L (98-107); Glucose 90 mg/dL (70-105); Osmolality,Calculated 295 (280-300); Potassium 4.2 mEq/L (3.5-5.1); Sodium 142 mEq/L (136-145); Troponin I < 0.03 ng/mL (< 0.04); eGFR For African Americans > 60 (> 60); eGFR For Non-African Americans > 60 (> 60)
[2020-01-08] MEDS ORDERED: Naloxone 0.4 MG/ML INJ IVP PRN (18:52)
[2020-01-08] MEDS ORDERED: Ondansetron ODT 4 MG TAB.RAPDIS SL PRN (18:52)
[2020-01-08] MEDS ORDERED: Mag Hydrox/Al Hydrox/Simeth 30 ML UDC PO PRN (18:52)
[2020-01-08] MEDS: calcium polycarbophiL 625 MG TABLET PO SCH (21:24)
[2020-01-08] MEDS: Azithromycin 500 MG in 0.9 % Sodium Chloride 250 ML IVPB SCH (21:25)
[2020-01-08] MEDS: Gabapentin 400 MG CAPSULE PO SCH (21:25)
[2020-01-08] MEDS: (Diclofenac Sodium [Voltaren] 100 GM) TP SCH (21:34)
[2020-01-08 22:46] LABS: Bilirubin,Urine Negative (Negative); Blood,Urine Negative (Negative); Clarity,Urine Cloudy (Clear); Color,Urine Yellow (Yellow); Glucose,Urine (UA) Normal (Normal); Ketones,Urine Negative (Negative); Leukocyte Esterase,Urine Negative (Negative); Nitrite,Urine Negative (Negative); PH,Urine 7.5 pH Units (5.0-8.0); Protein,Urine Negative (Neg-Trace); Specific Gravity,Urine 1.015 (1.010-1.025); Urobilinogen,Urine Normal (Normal)
[2020-01-08 22:52] LABS: WBC,Urine 0-3 per hpf (0-3)
[2020-01-08 22:53] LABS: Amorphous Sediment,Urine Moderate per hpf (Few)
[2020-01-08] MEDS: Ipratropium/Albuterol Neb 3 ML IH SCH (23:48)
[2020-01-09] MEDS: *HR* OxyCODONE/APAP 10/325 TABLET PO PRN ×4 (00:09→20:55)
[2020-01-09] MEDS: MethylPREDNISolone 40 MG/ML VIAL IVP SCH ×5 (00:10→23:40)
[2020-01-09] MEDS: Ipratropium/Albuterol Neb 3 ML IH SCH ×5 (04:52→21:34)
[2020-01-09 06:19] LABS: Basophils % 0.1 %; Hematocrit 33.2 % (37.5-50.1); Hemoglobin 10.6 g/dL (12.9-16.9); Immature Granulocytes % 0.3 % (0-4); Lymphocytes # 0.8 K/mcL (0.6-4.6); Lymphocytes % 11.8 %; Mean Corpuscular HGB Conc 31.9 g/dL (31.6-35.5); Mean Corpuscular Hemoglobin 31.1 pg (28.0-33.3); Mean Corpuscular Volume 97.4 fL (83.0-100.0); Mean Platelet Volume 10.3 fL (9.4-12.4); Monocytes # 0.1 K/mcL (0.0-1.3); Neutrophils # 5.9 K/mcL (1.6-8.9); Platelet Count 168 K/mcL (140-400); Red Blood Count 3.41 M/mcL (4.19-5.50); Segmented Neutrophils % 86.8 %; White Blood Count 6.8 K/mcL (4.3-11.1)
[2020-01-09 06:44] LABS: BUN/Creatinine Ratio 25 (6-26); Blood Urea Nitrogen 17 mg/dL (8-23); Calcium 8.8 mg/dL (8.6-10.3); Carbon Dioxide 37 mEq/L (23-29); Chloride 102 mEq/L (98-107); Glucose 167 mg/dL (70-105); Osmolality,Calculated 301 (280-300); Potassium 4.7 mEq/L (3.5-5.1); Sodium 143 mEq/L (136-145); eGFR For African Americans > 60 (> 60); eGFR For Non-African Americans > 60 (> 60)
[2020-01-09] MEDS ORDERED: *HR* Dextrose 50 % in Water (Syg) 50 ML SYRINGE IVP PRN (07:21)
[2020-01-09] MEDS ORDERED: D5% in Water 1,000 ML IVC PRN (07:21)
[2020-01-09] MEDS ORDERED: Dextrose Gel 15 GM/37.5 ML TUBE PO PRN ×2 (07:21)
[2020-01-09] MEDS: Gabapentin 400 MG CAPSULE PO SCH ×3 (08:06→19:58)
[2020-01-09] MEDS: Nicotine 21 MG PATCH.TD24 TD SCH (08:06)
[2020-01-09] MEDS: calcium polycarbophiL 625 MG TABLET PO SCH ×4 (08:06→19:58)
[2020-01-09] MEDS: cefTRIAXone 1,000 MG in Water for inj. (sterile) 10 ML IVP SCH (08:07)
[2020-01-09] MEDS: Pyridoxine (B-6) 50 MG TABLET PO SCH (08:08)
[2020-01-09] MEDS: Fluticasone Propionate Nasal 50 MCG/SPRAY BOTTLE NS SCH (08:08)
[2020-01-09] MEDS: Insulin LISPRO 300 UNITS/3 ML VIAL SQ SCH ×3 (08:20→16:19)
[2020-01-09] MEDS ORDERED: *HR* Enoxaparin 40 MG/0.4 ML SYRINGE SQ SCH (09:00)
[2020-01-09] MEDS: (Diclofenac Sodium [Voltaren] 100 GM) TP SCH (19:49)
[2020-01-09] MEDS: Azithromycin 500 MG in 0.9 % Sodium Chloride 250 ML IVPB SCH (19:58)
[2020-01-09] MEDS ORDERED: Insulin LISPRO 300 UNITS/3 ML VIAL SQ SCH (21:00)
[2020-01-09 22:01] LABS: Adenovirus Not Detected (Not Detect); Bordetella Pertussis Not Detected (Not Detect); Chlamydophila pneumoniae Not Detected (Not Detect); Coronavirus 229E Not Detected (Not Detect); Coronavirus HKU1 Not Detected (Not Detect); Coronavirus NL63 Not Detected (Not Detect); Coronavirus OC43 Not Detected (Not Detect); Human Metapneumovirus Not Detected (Not Detect); Human Rhinovirus/Enterovirus Not Detected (Not Detect); Influenza A Subtype 2009 H1 Not Detected (Not Detect); Influenza B Not Detected (Not Detect); Mycoplasma pneumoniae Not Detected (Not Detect); Parainfluenza Virus 1 Not Detected (Not Detect); Parainfluenza Virus 2 Not Detected (Not Detect); Parainfluenza Virus 3 Not Detected (Not Detect); Parainfluenza Virus 4 Not Detected (Not Detect); Respiratory Syncytial Virus Not Detected (Not Detect)
[2020-01-10] MEDS: *HR* OxyCODONE/APAP 10/325 TABLET PO PRN ×2 (03:04→08:58)
[2020-01-10] MEDS: Ipratropium/Albuterol Neb 3 ML IH SCH ×2 (04:18→09:18)
[2020-01-10] MEDS ORDERED: Acetaminophen 325 MG TABLET PO PRN (04:48)
[2020-01-10] MEDS: MethylPREDNISolone 40 MG/ML VIAL IVP SCH (04:54)
[2020-01-10] MEDS ORDERED: *HR* Enoxaparin 40 MG/0.4 ML SYRINGE SQ SCH (06:00)
[2020-01-10 06:12] LABS: Hematocrit 31.7 % (37.5-50.1); Hemoglobin 10.3 g/dL (12.9-16.9); Mean Corpuscular HGB Conc 32.5 g/dL (31.6-35.5); Mean Corpuscular Hemoglobin 31.4 pg (28.0-33.3); Mean Corpuscular Volume 96.6 fL (83.0-100.0); Mean Platelet Volume 10.3 fL (9.4-12.4); Platelet Count 201 K/mcL (140-400); Red Blood Count 3.28 M/mcL (4.19-5.50); Red Cell Distribution Width 16.1 % (11.5-14.5); White Blood Count 18.8 K/mcL (4.3-11.1)
[2020-01-10 06:34] LABS: BUN/Creatinine Ratio 36 (6-26); Blood Urea Nitrogen 19 mg/dL (8-23); Calcium 8.9 mg/dL (8.6-10.3); Carbon Dioxide 34 mEq/L (23-29); Chloride 102 mEq/L (98-107); Glucose 131 mg/dL (70-105); Osmolality,Calculated 296 (280-300); Potassium 4.3 mEq/L (3.5-5.1); Sodium 141 mEq/L (136-145); eGFR For African Americans > 60 (> 60); eGFR For Non-African Americans > 60 (> 60)
[2020-01-10] MEDS: Insulin LISPRO 300 UNITS/3 ML VIAL SQ SCH (07:21)
[2020-01-10] MEDS: calcium polycarbophiL 625 MG TABLET PO SCH (08:57)
[2020-01-10] MEDS: Gabapentin 400 MG CAPSULE PO SCH (08:58)
[2020-01-10] MEDS: Pyridoxine (B-6) 50 MG TABLET PO SCH (08:58)
[2020-01-10] MEDS: cefTRIAXone 1,000 MG in Water for inj. (sterile) 10 ML IVP SCH (08:58)
[2020-01-10] MEDS: Nicotine 21 MG PATCH.TD24 TD SCH (08:59)
[2020-01-10] MEDS: Fluticasone Propionate Nasal 50 MCG/SPRAY BOTTLE NS SCH (09:14)
[2020-01-10 10:05] VITALS: BP 114/62
[2020-01-10] MEDS ORDERED: MethylPREDNISolone 40 MG/ML VIAL IVP SCH (18:00)
== END 2020-01-10 12:01 | disposition home or self-care (01) | DRG 189 ==
LOC: EMEROOPIK 17:12 → INPPIK 17:12
PROVIDERS: ADMIT Family Medicine; ATTEND Family Medicine

== ENCOUNTER 2020-03-02 11:37 | Observation (INO) ==
[2020-03-02] MEDS ORDERED: methylPREDNISolone 125 MG/2 ML VIAL IVP ONE (12:00)
[2020-03-02] MEDS ORDERED: 0.9 % Sodium Chloride 1,000 ML IVC ONE (12:00)
[2020-03-02] MEDS ORDERED: Ipratropium/Albuterol Neb 3 ML IH ONE (12:00)
[2020-03-02] MEDS ORDERED: Isovue-370 500 ML BOTTLE IVP ONE (12:00)
[2020-03-02 12:19] LABS: Bilirubin,Urine Negative (Negative); Blood,Urine Negative (Negative); Clarity,Urine Slightly Cloudy (Clear); Color,Urine Light Yellow (Yellow); Glucose,Urine (UA) Normal (Normal); Ketones,Urine Negative (Negative); Leukocyte Esterase,Urine Negative (Negative); Nitrite,Urine Negative (Negative); PH,Urine 8.5 pH Units (5.0-8.0); Protein,Urine Negative (Neg-Trace); Specific Gravity,Urine 1.015 (1.010-1.025); Urobilinogen,Urine Normal (Normal)
[2020-03-02 12:30] LABS: ABG Base Excess 6 mEq/L (-2 to 3); ABG HCO3 33 mEq/L (21-27); ABG Oxygen Saturation 98 % (95-98); ABG PCO2 55 mmHg (35-45); ABG PH 7.39 pH Units (7.32-7.45); ABG PO2 100 mmHg (85-104); ABG TCO2 35 mEq/L (20-26)
[2020-03-02 12:30] LABS: Amorphous Sediment,Urine Many per hpf (None-Few); Squamous Epithelial Cell,Urine Few per hpf (None-Few); WBC,Urine 0-3 per hpf (0-3)
[2020-03-02 12:38] LABS: Basophils % 0.3 %; Eosinophils % 0.5 %; Hematocrit 33.6 % (37.5-50.1); Immature Granulocytes % 0.4 % (0-4); Lymphocytes # 0.8 K/mcL (0.6-4.6); Lymphocytes % 10.7 %; Mean Corpuscular HGB Conc 32.7 g/dL (31.6-35.5); Mean Corpuscular Hemoglobin 31.3 pg (28.0-33.3); Mean Corpuscular Volume 95.5 fL (83.0-100.0); Mean Platelet Volume 10.4 fL (9.4-12.4); Monocytes # 0.2 K/mcL (0.0-1.3); Monocytes % 2.7 %; Neutrophils # 6.7 K/mcL (1.6-8.9); Platelet Count 219 K/mcL (140-400); Red Blood Count 3.52 M/mcL (4.19-5.50); Red Cell Distribution Width 13.2 % (11.5-14.5); Segmented Neutrophils % 85.4 %; White Blood Count 7.8 K/mcL (4.3-11.1)
[2020-03-02 13:02] LABS: Alanine Aminotransferase 16 Units/L (7-52); Albumin 3.7 g/dL (3.5-5.7); Albumin/Globulin Ratio 1.8 (1.1-2.2); Alkaline Phosphatase 50 Units/L (34-104); Aspartate Amino Transferase 25 Units/L (13-39); Bilirubin,Direct 0.1 mg/dL (0.0-0.2); Bilirubin,Indirect 0.3 mg/dL (0.0-1.0); Bilirubin,Total 0.4 mg/dL (0.3-1.0); Globulin 2.1 g/dL (2.4-3.5); Total Protein 5.8 g/dL (6.4-8.9)
[2020-03-02 13:03] LABS: BUN/Creatinine Ratio 20 (6-26); Blood Urea Nitrogen 13 mg/dL (8-23); Calcium 9.3 mg/dL (8.6-10.3); Carbon Dioxide 34 mEq/L (23-29); Chloride 102 mEq/L (98-107); Glucose 116 mg/dL (70-105); Osmolality,Calculated 295 (280-300); Sodium 142 mEq/L (136-145); eGFR For African Americans > 60 (> 60); eGFR For Non-African Americans > 60 (> 60)
[2020-03-02 13:06] LABS: Activated Partial Thrombo Time 31.7 Seconds (26.0-36.0)
[2020-03-02 13:07] LABS: Prothrombin Time 12.1 Seconds (9.4-12.1)
[2020-03-02 13:08] LABS: INR 1.1
[2020-03-02 13:46] LABS: Troponin I < 0.03 ng/mL (< 0.04)
[2020-03-02] MEDS ORDERED: MOM Conc 10 ML UD.LIQ PO PRN (14:48)
[2020-03-02] MEDS ORDERED: Acetaminophen 325 MG TABLET PO PRN (14:48)
[2020-03-02] MEDS ORDERED: Ondansetron 4 MG/2 ML VIAL IVP PRN (14:48)
[2020-03-02] MEDS ORDERED: Naloxone 0.4 MG/ML INJ IVP PRN (14:48)
[2020-03-02] MEDS ORDERED: Mag Hydrox/Al Hydrox/Simeth 30 ML UDC PO PRN (14:48)
[2020-03-02] MEDS ORDERED: tiZANidine 4 MG TABLET PO PRN (15:00)
[2020-03-02] MEDS ORDERED: Ipratropium/Albuterol Neb 3 ML IH PRN (16:12)
[2020-03-02] MEDS: Gabapentin 400 MG CAPSULE PO SCH ×2 (16:21→19:32)
[2020-03-02] MEDS: MethylPREDNISolone 40 MG/ML VIAL IVP SCH (16:22)
[2020-03-02] MEDS: calcium polycarbophiL 625 MG TABLET PO SCH ×2 (16:22→19:32)
[2020-03-02] MEDS ORDERED: Nicotine 2 MG GUM BC PRN (16:25)
[2020-03-02] MEDS ORDERED: Melatonin 3 MG TABLET PO PRN (17:03)
[2020-03-03] MEDS: MethylPREDNISolone 40 MG/ML VIAL IVP SCH ×3 (00:48→13:06)
[2020-03-03] MEDS: *HR* OxyCODONE/APAP 10/325 TABLET PO PRN ×2 (04:48→20:18)
[2020-03-03 07:24] LABS: Basophils % 0.1 %; Hematocrit 32.6 % (37.5-50.1); Hemoglobin 10.7 g/dL (12.9-16.9); Immature Granulocytes % 0.5 % (0-4); Lymphocytes # 0.7 K/mcL (0.6-4.6); Lymphocytes % 7.3 %; Mean Corpuscular HGB Conc 32.8 g/dL (31.6-35.5); Mean Corpuscular Hemoglobin 30.9 pg (28.0-33.3); Mean Corpuscular Volume 94.2 fL (83.0-100.0); Monocytes # 0.2 K/mcL (0.0-1.3); Monocytes % 2.6 %; Neutrophils # 8.4 K/mcL (1.6-8.9); Platelet Count 219 K/mcL (140-400); Red Blood Count 3.46 M/mcL (4.19-5.50); Segmented Neutrophils % 89.5 %; White Blood Count 9.3 K/mcL (4.3-11.1)
[2020-03-03 07:35] LABS: BUN/Creatinine Ratio 26 (6-26); Blood Urea Nitrogen 16 mg/dL (8-23); Calcium 9.2 mg/dL (8.6-10.3); Carbon Dioxide 33 mEq/L (23-29); Chloride 102 mEq/L (98-107); Glucose 134 mg/dL (70-105); Osmolality,Calculated 295 (280-300); Potassium 4.1 mEq/L (3.5-5.1); Sodium 141 mEq/L (136-145); eGFR For African Americans > 60 (> 60); eGFR For Non-African Americans > 60 (> 60)
[2020-03-03] MEDS: Gabapentin 400 MG CAPSULE PO SCH ×3 (10:20→20:19)
[2020-03-03] MEDS: calcium polycarbophiL 625 MG TABLET PO SCH ×4 (10:20→20:19)
[2020-03-03] MEDS: Fluticasone Propionate Nasal 50 MCG/SPRAY BOTTLE NS SCH (10:28)
[2020-03-03] MEDS ORDERED: *HR* LORazepam 0.5 MG TABLET PO PRN (11:19)
[2020-03-04] MEDS: MethylPREDNISolone 40 MG/ML VIAL IVP SCH ×2 (00:36→07:50)
[2020-03-04] MEDS: *HR* OxyCODONE/APAP 10/325 TABLET PO PRN (02:18)
[2020-03-04 04:49] LABS: Basophils % 0.1 %; Hematocrit 34.8 % (37.5-50.1); Hemoglobin 11.4 g/dL (12.9-16.9); Immature Granulocytes % 0.4 % (0-4); Lymphocytes # 0.8 K/mcL (0.6-4.6); Lymphocytes % 5.5 %; Mean Corpuscular HGB Conc 32.8 g/dL (31.6-35.5); Mean Corpuscular Hemoglobin 31.1 pg (28.0-33.3); Mean Corpuscular Volume 94.8 fL (83.0-100.0); Mean Platelet Volume 10.3 fL (9.4-12.4); Monocytes # 0.4 K/mcL (0.0-1.3); Monocytes % 2.8 %; Platelet Count 219 K/mcL (140-400); Red Blood Count 3.67 M/mcL (4.19-5.50); Red Cell Distribution Width 13.2 % (11.5-14.5); Segmented Neutrophils % 91.2 %; White Blood Count 15.3 K/mcL (4.3-11.1)
[2020-03-04 05:13] LABS: BUN/Creatinine Ratio 34 (6-26); Blood Urea Nitrogen 24 mg/dL (8-23); Carbon Dioxide 35 mEq/L (23-29); Chloride 102 mEq/L (98-107); Glucose 108 mg/dL (70-105); Osmolality,Calculated 301 (280-300); Potassium 4.2 mEq/L (3.5-5.1); Sodium 143 mEq/L (136-145); eGFR For African Americans > 60 (> 60); eGFR For Non-African Americans > 60 (> 60)
[2020-03-04 06:41] VITALS: BP 133/79
[2020-03-04] MEDS: calcium polycarbophiL 625 MG TABLET PO SCH (07:49)
[2020-03-04] MEDS: Gabapentin 400 MG CAPSULE PO SCH (07:49)
[2020-03-04] MEDS: Fluticasone Propionate Nasal 50 MCG/SPRAY BOTTLE NS SCH (07:50)
== END 2020-03-04 12:00 | disposition home health service (06) ==
LOC: EMEROOPIK 11:37 → INPPIK 11:37
PROVIDERS: ADMIT Family Medicine; ATTEND Family Medicine